=== PATIENT | male | born 1930 | race African-American/Black ===

== ENCOUNTER 2018-01-04 11:46 | Inpatient (IN) ==
[2018-01-04] MEDS ORDERED: SODIUM CHLORIDE 0.9% 1,000 ML IV STA ×2 (12:19→14:49)
[2018-01-04 12:28] LABS: Basophils % 0.1 % (0.0-0.8); Eosinophils % 0.1 % (0.00-10.9); Hematocrit 51.5 VOL% (42.0-52.0); Hemoglobin 16.7 GM/DL (14.0-18.0); Immature Granulocytes % 1.3 %; Immature Granulocytes Absolute 0.18 #; Lymphocytes # 0.7 10*3/uL (1.4-4.0); Lymphocytes % 5.1 % (21.2-54.2); Mean Corpuscular HGB Conc 32.4 GM/DL (32-36); Mean Corpuscular Hemoglobin 30 PG (27-34); Mean Corpuscular Volume 92.5 FL (87-102); Mean Platelet Volume 10.9 FL (9.6-12.0); Monocytes % 7.5 % (1.7-12.7); Neutrophils # 11.5 10*3/uL (1.4-7.4); Neutrophils % 85.9 % (38.7-73.9); Platelet Count 178 T/CUMM (130-400); Red Blood Count 5.57 MC/CUMM (3.8-5.5); Red Cell Distribution Width 17.2 % (9.3-17.3); White Blood Count 13.4 T/CUMM (4-12)
[2018-01-04 12:48] LABS: Lactic Acid 10.8 MMOL/L (0.4-2.0)
[2018-01-04 12:50] LABS: INR 1.1; Partial Thromboplastin Time 23.7 SECS (0-40)
[2018-01-04 12:54] LABS: Ammonia 114 UMOL/L (11-32)
[2018-01-04 14:19] LABS: Alanine Aminotransferase 45 U/L (16-61); Albumin 3.5 G/DL (3.4-5.0); Alkaline Phosphatase 77 U/L (45-117); Aspartate Amino Transferase 87 U/L (0-37); Blood Urea Nitrogen 129 MG/DL (7-18); Glucose 114 MG/DL (74-106); Osmolality,Calculated 315.8 MOS/KG (273-304); Potassium 5.8 MMOL/L (3.5-5.1); Sodium 137 MMOL/L (136-145); Total Protein 7.5 G/DL (6.4-8.3); Troponin I Only 0.066 NG/ML (0.00-0.045)
[2018-01-04] MEDS ORDERED: cefTRIAXone 1,000 MG VIAL IM STA (14:47)
[2018-01-04] MEDS ORDERED: cefTRIAXone 1,000 MG VIAL ONE (15:30)
[2018-01-04] MEDS ORDERED: cefTRIAXone 1,000 MG in SODIUM CHLORIDE 0.9% 100 ML IV STA (15:36)
[2018-01-04 15:56] LABS: Eosinophils % 0.1 % (0.00-10.9); Hematocrit 47.7 VOL% (42.0-52.0); Hemoglobin 15.5 GM/DL (14.0-18.0); Immature Granulocytes % 2.2 %; Immature Granulocytes Absolute 0.25 #; Lymphocytes # 0.6 10*3/uL (1.4-4.0); Lymphocytes % 5.1 % (21.2-54.2); Mean Corpuscular HGB Conc 32.5 GM/DL (32-36); Mean Corpuscular Hemoglobin 30 PG (27-34); Mean Corpuscular Volume 92.6 FL (87-102); Monocytes # 0.9 10*3/uL (0.11-0.8); Monocytes % 8.1 % (1.7-12.7); Neutrophils # 9.5 10*3/uL (1.4-7.4); Neutrophils % 84.5 % (38.7-73.9); Platelet Count 153 T/CUMM (130-400); Red Blood Count 5.15 MC/CUMM (3.8-5.5); Red Cell Distribution Width 17.1 % (9.3-17.3); White Blood Count 11.3 T/CUMM (4-12)
[2018-01-04] MEDS ORDERED: ONDANSETRON 4 MG/2 ML VIAL IV PRN (16:15)
[2018-01-04] MEDS: SODIUM CHLORIDE 0.9% 1,000 ML IV SCH (18:05)
[2018-01-04 19:27] LABS: Hematocrit 47.5 VOL% (42.0-52.0)
[2018-01-04] MEDS ORDERED: SODIUM CHLORIDE 0.9% 500 ML IV ONE (20:55)
[2018-01-04 21:09] LABS: Calcium 9.3 MG/DL (8.5-10.1); Osmolality,Calculated 315.7 MOS/KG (273-304); Potassium 5.5 MMOL/L (3.5-5.1)
[2018-01-04] MEDS: PANTOPRAZOLE 40 MG VIAL IV SCH (22:21)
[2018-01-04 23:53] LABS: Hematocrit 46.7 VOL% (42.0-52.0); Hemoglobin 15.8 GM/DL (14.0-18.0)
[2018-01-05] MEDS: SODIUM CHLORIDE 0.9% 1,000 ML IV SCH ×2 (01:38→08:19)
[2018-01-05 06:40] LABS: Hematocrit 43.5 VOL% (42.0-52.0); Hemoglobin 15.3 GM/DL (14.0-18.0)
[2018-01-05 07:10] LABS: Calcium 9.2 MG/DL (8.5-10.1); Osmolality,Calculated 320.3 MOS/KG (273-304); Potassium 4.9 MMOL/L (3.5-5.1)
[2018-01-05] MEDS: PANTOPRAZOLE 40 MG VIAL IV SCH ×2 (08:17→21:10)
[2018-01-05 10:50] LABS: Hematocrit 44.6 VOL% (42.0-52.0); Hemoglobin 15.4 GM/DL (14.0-18.0)
[2018-01-05] MEDS ORDERED: cefTRIAXone 1,000 MG in SYRINGE 1 EACH IV STA (13:45)
[2018-01-05 13:56] LABS: Basophils % 0.2 % (0.0-0.8); Hematocrit 43.8 VOL% (42.0-52.0); Hemoglobin 15.1 GM/DL (14.0-18.0); Immature Granulocytes % 0.5 %; Immature Granulocytes Absolute 0.04 #; Lymphocytes # 0.8 10*3/uL (1.4-4.0); Lymphocytes % 8.8 % (21.2-54.2); Mean Corpuscular HGB Conc 34.5 GM/DL (32-36); Mean Corpuscular Hemoglobin 30 PG (27-34); Mean Corpuscular Volume 87.3 FL (87-102); Mean Platelet Volume 10.9 FL (9.6-12.0); Monocytes # 1.1 10*3/uL (0.11-0.8); Monocytes % 12.5 % (1.7-12.7); Neutrophils # 6.8 10*3/uL (1.4-7.4); Platelet Count 143 T/CUMM (130-400); Red Blood Count 5.02 MC/CUMM (3.8-5.5); Red Cell Distribution Width 16.7 % (9.3-17.3); White Blood Count 8.7 T/CUMM (4-12)
[2018-01-05 14:18] LABS: Lactic Acid 2.3 MMOL/L (0.4-2.0)
[2018-01-05 14:37] LABS: Band Neutrophils 5 % (0-10); Lymphocytes 7 % (20-55); Ovalocytes Slight; Segmented Neutrophils 74 % (50-85); Total Cells Counted 100
[2018-01-05 14:38] LABS: Platelet Estimate Adequate; Polychromasia Slight; Target Cells Slight
[2018-01-05] MEDS ORDERED: TUBERCULIN SKIN TEST 0.1 ML SYRINGE INTRADERM ONE (16:14)
[2018-01-05 16:26] LABS: Hematocrit 43.5 VOL% (42.0-52.0); Hemoglobin 14.6 GM/DL (14.0-18.0)
[2018-01-05] MEDS: DEXTROSE 5% NACL 0.45% 1,000 ML IV SCH (17:08)
[2018-01-05] MEDS ORDERED: METOPROLOL TARTRATE 25 MG TABLET PO ONE (22:10)
[2018-01-05 22:25] LABS: Hematocrit 42.9 VOL% (42.0-52.0); Hemoglobin 14.7 GM/DL (14.0-18.0)
[2018-01-06] MEDS ORDERED: METOPROLOL TARTRATE 25 MG TABLET PO ONE (03:24)
[2018-01-06] MEDS: DEXTROSE 5% NACL 0.45% 1,000 ML IV SCH ×2 (03:47→14:17)
[2018-01-06 06:50] LABS: Basophils % 0.3 % (0.0-0.8); Eosinophils % 0.1 % (0.00-10.9); Hematocrit 41.6 VOL% (42.0-52.0); Hemoglobin 14.3 GM/DL (14.0-18.0); Immature Granulocytes % 0.5 %; Immature Granulocytes Absolute 0.04 #; Lymphocytes # 0.7 10*3/uL (1.4-4.0); Lymphocytes % 8.6 % (21.2-54.2); Mean Corpuscular HGB Conc 34.4 GM/DL (32-36); Mean Corpuscular Hemoglobin 30 PG (27-34); Mean Corpuscular Volume 87.4 FL (87-102); Mean Platelet Volume 11.8 FL (9.6-12.0); Monocytes # 0.9 10*3/uL (0.11-0.8); Monocytes % 11.8 % (1.7-12.7); Neutrophils # 6.2 10*3/uL (1.4-7.4); Neutrophils % 78.7 % (38.7-73.9); Platelet Count 142 T/CUMM (130-400); Red Blood Count 4.76 MC/CUMM (3.8-5.5); Red Cell Distribution Width 16.8 % (9.3-17.3); White Blood Count 7.9 T/CUMM (4-12)
[2018-01-06 07:09] LABS: Calcium 8.5 MG/DL (8.5-10.1); Osmolality,Calculated 321.8 MOS/KG (273-304); Potassium 3.6 MMOL/L (3.5-5.1)
[2018-01-06 07:19] LABS: Band Neutrophils 6 % (0-10); Lymphocytes 14 % (20-55); Segmented Neutrophils 67 % (50-85); Total Cells Counted 100
[2018-01-06 07:20] LABS: Burr Cells Slight; Hypochromasia 1+; Ovalocytes Slight; Platelet Estimate Normal
[2018-01-06] MEDS: PANTOPRAZOLE 40 MG VIAL IV SCH ×2 (08:24→21:06)
[2018-01-06] MEDS ORDERED: METOPROLOL SUCCINATE XL 25 MG TABLET PO SCH (09:00)
[2018-01-06 10:59] LABS: Hematocrit 44.2 VOL% (42.0-52.0); Hemoglobin 15.1 GM/DL (14.0-18.0)
[2018-01-06] MEDS: cefTRIAXone 1,000 MG in SYRINGE 1 EACH IV SCH (14:16)
[2018-01-07] MEDS: DEXTROSE 5% NACL 0.45% 1,000 ML IV SCH ×4 (01:30→20:03)
[2018-01-07 05:15] LABS: Basophils % 0.5 % (0.0-0.8); Eosinophils # 0.1 10*3/uL (0.0-0.87); Eosinophils % 1.6 % (0.00-10.9); Hematocrit 43.5 VOL% (42.0-52.0); Hemoglobin 15.1 GM/DL (14.0-18.0); Immature Granulocytes % 0.4 %; Immature Granulocytes Absolute 0.03 #; Lymphocytes # 0.7 10*3/uL (1.4-4.0); Lymphocytes % 8.8 % (21.2-54.2); Mean Corpuscular HGB Conc 34.7 GM/DL (32-36); Mean Corpuscular Hemoglobin 30 PG (27-34); Mean Corpuscular Volume 87.2 FL (87-102); Mean Platelet Volume 11.4 FL (9.6-12.0); Monocytes # 0.7 10*3/uL (0.11-0.8); Neutrophils # 6.6 10*3/uL (1.4-7.4); Neutrophils % 79.7 % (38.7-73.9); Platelet Count 147 T/CUMM (130-400); Red Blood Count 4.99 MC/CUMM (3.8-5.5); Red Cell Distribution Width 16.9 % (9.3-17.3); White Blood Count 8.2 T/CUMM (4-12)
[2018-01-07 05:43] LABS: Calcium 9.3 MG/DL (8.5-10.1); Osmolality,Calculated 316.6 MOS/KG (273-304); Potassium 3.8 MMOL/L (3.5-5.1)
[2018-01-07 06:00] LABS: Band Neutrophils 2 % (0-10); Eosinophils 1 % (0-10); Lymphocytes 15 % (20-55); Segmented Neutrophils 78 % (50-85); Total Cells Counted 100
[2018-01-07 06:01] LABS: Hypochromasia 1+; Microcytosis 1+; Ovalocytes Slight
[2018-01-07 06:02] LABS: Platelet Estimate Adequate; Target Cells Slight
[2018-01-07] MEDS: PANTOPRAZOLE 40 MG VIAL IV SCH ×2 (09:38→20:03)
[2018-01-07] MEDS ORDERED: ETOMIDATE 20 MG/10 ML VIAL IV ONE (12:13)
[2018-01-07] MEDS ORDERED: LIDOCAINE 2% 5 ML VIAL ONE (12:13)
[2018-01-07] MEDS ORDERED: PROPOFOL 200 MG/20 ML VIAL IV ONE (12:13)
[2018-01-07] MEDS: cefTRIAXone 1,000 MG in SYRINGE 1 EACH IV SCH (14:26)
[2018-01-08 07:23] LABS: Basophils % 0.3 % (0.0-0.8); Eosinophils # 0.1 10*3/uL (0.0-0.87); Eosinophils % 2.2 % (0.00-10.9); Hematocrit 43.9 VOL% (42.0-52.0); Hemoglobin 14.8 GM/DL (14.0-18.0); Immature Granulocytes % 0.5 %; Immature Granulocytes Absolute 0.03 #; Lymphocytes # 0.8 10*3/uL (1.4-4.0); Lymphocytes % 12.6 % (21.2-54.2); Mean Corpuscular HGB Conc 33.7 GM/DL (32-36); Mean Corpuscular Hemoglobin 30 PG (27-34); Mean Corpuscular Volume 89.2 FL (87-102); Mean Platelet Volume 11.2 FL (9.6-12.0); Monocytes % 15.6 % (1.7-12.7); Neutrophils # 4.4 10*3/uL (1.4-7.4); Neutrophils % 68.8 % (38.7-73.9); Platelet Count 149 T/CUMM (130-400); Red Blood Count 4.92 MC/CUMM (3.8-5.5); Red Cell Distribution Width 16.9 % (9.3-17.3); White Blood Count 6.4 T/CUMM (4-12)
[2018-01-08 07:38] LABS: Eosinophils 1 % (0-10); Giant Platelets Few; Hypochromasia 1+; Lymphocytes 18 % (20-55); Ovalocytes Slight; Platelet Estimate Normal; Segmented Neutrophils 75 % (50-85); Total Cells Counted 100
[2018-01-08 07:39] LABS: Microcytosis 1+
[2018-01-08 07:49] LABS: Calcium 8.8 MG/DL (8.5-10.1); Osmolality,Calculated 298.8 MOS/KG (273-304)
[2018-01-08] MEDS ORDERED: MAGNESIUM SULF RIDER 2 GM in PREMIX 1 EACH IV PRN (08:11)
[2018-01-08] MEDS: PANTOPRAZOLE 40 MG VIAL IV SCH (09:17)
[2018-01-08] MEDS: POTASSIUM CHLORIDE 20 MEQ TABLET PO PRN ×4 (09:17→15:14)
[2018-01-08] MEDS ORDERED: BISACODYL 5 MG TABLET PO ONE (09:26)
[2018-01-08] MEDS: DEXTROSE 5% NACL 0.45% 1,000 ML IV SCH (15:16)
[2018-01-08] MEDS: cefTRIAXone 1,000 MG in SYRINGE 1 EACH IV SCH (15:16)
[2018-01-08 16:29] LABS: Lactic Acid 2.5 MMOL/L (0.4-2.0)
[2018-01-08] MEDS ORDERED: MIRTAZAPINE 30 MG TABLET PO SCH (21:00)
[2018-01-09] MEDS: PANTOPRAZOLE 40 MG VIAL IV SCH ×2 (01:54→08:28)
[2018-01-09] MEDS: POTASSIUM CHLORIDE 20 MEQ TABLET PO PRN (08:29)
[2018-01-09] MEDS ORDERED: SIMVASTATIN 10 MG TABLET PO SCH (09:00)
[2018-01-09] MEDS ORDERED: CITALOPRAM 20 MG TABLET PO SCH (09:00)
[2018-01-09 12:34] VITALS: BP 106/56
== END 2018-01-09 14:06 | DRG 377 ==
LOC: EDUNIT# → EDBD → N.ED 11:46 → N.EDINP 16:15 → SUATTDRO 16:15 → N.5E 17:15
PROVIDERS: ADMIT Internal Medicine; ATTEND Internal Medicine

== ENCOUNTER 2018-02-09 08:58 | Inpatient (IN) ==
[2018-02-09] MEDS ORDERED: methylPREDNISolone SOD SUC 125 MG/2 ML VIAL IV STA (09:06)
[2018-02-09] MEDS ORDERED: LEVOFLOXACIN INJ 750 MG in PREMIX 1 EACH IV STA (09:06)
[2018-02-09] MEDS ORDERED: SODIUM CHLORIDE 0.9% 1,000 ML IV STA (09:06)
[2018-02-09] MEDS ORDERED: ALBUTEROL NEB SOLN 5 MG/ML 20 ML/BOTTLE RESP TX SCH (09:30)
[2018-02-09 10:11] LABS: Basophils % 0.1 % (0.0-0.8); Eosinophils % 0.5 % (0.00-10.9); Hematocrit 40.5 VOL% (42.0-52.0); Hemoglobin 13.8 GM/DL (14.0-18.0); Immature Granulocytes % 0.5 %; Immature Granulocytes Absolute 0.04 #; Lymphocytes # 0.9 10*3/uL (1.4-4.0); Lymphocytes % 10.3 % (21.2-54.2); Mean Corpuscular HGB Conc 34.1 GM/DL (32-36); Mean Corpuscular Hemoglobin 32 PG (27-34); Mean Corpuscular Volume 93.1 FL (87-102); Mean Platelet Volume 10.7 FL (9.6-12.0); Monocytes # 0.8 10*3/uL (0.11-0.8); Monocytes % 8.8 % (1.7-12.7); NRBC # 0.17 10*3/uL; Neutrophils # 6.9 10*3/uL (1.4-7.4); Neutrophils % 79.8 % (38.7-73.9); Platelet Count 114 T/CUMM (130-400); Red Blood Count 4.35 MC/CUMM (3.8-5.5); Red Cell Distribution Width 21.7 % (9.3-17.3); White Blood Count 8.6 T/CUMM (4-12)
[2018-02-09 10:27] LABS: Albumin 2.8 G/DL (3.4-5.0); Bilirubin,Total 2.3 MG/DL (0.2-1.0); Calcium 9.3 MG/DL (8.5-10.1); Osmolality,Calculated 322.1 MOS/KG (273-304); Potassium 4.4 MMOL/L (3.5-5.1); Total Protein 6.6 G/DL (6.4-8.3)
[2018-02-09 10:28] LABS: Lactic Acid 3.1 MMOL/L (0.4-2.0); Troponin I Only 0.143 NG/ML (0.00-0.045)
[2018-02-09 10:37] LABS: INR 1.4; PT Patient Result 14.2 SECS; Partial Thromboplastin Time 29.1 SECS (0-40)
[2018-02-09 11:41] LABS: Apearance,Urine CLEAR (Clear); Bacteria,Urine Few /HPF (Few); Bilirubin,Urine Negative (Negative); Blood, Urine Moderate mg/dL (Negative); Glucose,Urine (UA) Negative (Negative); Hyaline Casts,Urine 6 /LPF (0-3); Ketones,Urine Negative (Negative); Mucus,Urine Occasional /LPF (Occasional); Nitrite,Urine Negative (Negative); Protein,Urine Negative; RBC,Urine 6 /HPF (0-4); Urine Color Amber (Yellow); Urine Specific Gravity 1.014 (1.001-1.035); WBC,Urine 3 /HPF (0-6)
[2018-02-09] MEDS ORDERED: POLYETHYLENE GLYCOL POWDER 17 GM PACK PO PRN (12:09)
[2018-02-09 14:30] LABS: Lactic Acid 4.1 MMOL/L (0.4-2.0)
[2018-02-09] MEDS: SODIUM BICARB INJ 100 MEQ in DEXTROSE 5% 1,000 ML IV SCH (16:14)
[2018-02-09 19:34] LABS: Lactic Acid 3.7 MMOL/L (0.4-2.0)
[2018-02-09] MEDS: MIRTAZAPINE 30 MG TABLET PO SCH (21:13)
[2018-02-10] MEDS: SODIUM BICARB INJ 100 MEQ in DEXTROSE 5% 1,000 ML IV SCH ×3 (01:48→19:14)
[2018-02-10 04:53] LABS: Basophils % 0.1 % (0.0-0.8); Hematocrit 36.9 VOL% (42.0-52.0); Hemoglobin 12.7 GM/DL (14.0-18.0); Immature Granulocytes % 0.4 %; Immature Granulocytes Absolute 0.03 #; Lymphocytes # 0.3 10*3/uL (1.4-4.0); Lymphocytes % 3.8 % (21.2-54.2); Mean Corpuscular HGB Conc 34.4 GM/DL (32-36); Mean Corpuscular Hemoglobin 32 PG (27-34); Mean Corpuscular Volume 91.6 FL (87-102); Mean Platelet Volume 11.5 FL (9.6-12.0); Monocytes # 0.3 10*3/uL (0.11-0.8); NRBC # 0.12 10*3/uL; Neutrophils # 7.6 10*3/uL (1.4-7.4); Neutrophils % 92.7 % (38.7-73.9); Platelet Count 109 T/CUMM (130-400); Red Blood Count 4.03 MC/CUMM (3.8-5.5); Red Cell Distribution Width 21.5 % (9.3-17.3); White Blood Count 8.2 T/CUMM (4-12)
[2018-02-10 05:24] LABS: Calcium 9.2 MG/DL (8.5-10.1); Potassium 4.3 MMOL/L (3.5-5.1)
[2018-02-10 05:39] LABS: INR 1.4; PT Patient Result 14.7 SECS; Partial Thromboplastin Time 33.6 SECS (0-40)
[2018-02-10 06:29] LABS: Hypochromasia 1+; Lymphocytes 4 % (20-55); Segmented Neutrophils 92 % (50-85); Total Cells Counted 100
[2018-02-10 06:30] LABS: Platelet Estimate Decreased
[2018-02-10] MEDS: SIMVASTATIN 10 MG TABLET PO SCH (10:28)
[2018-02-10] MEDS: CITALOPRAM 20 MG TABLET PO SCH (10:28)
[2018-02-10] MEDS: MIRTAZAPINE 30 MG TABLET PO SCH (21:33)
[2018-02-11 07:53] LABS: Basophils % 0.1 % (0.0-0.8); Hemoglobin 13.6 GM/DL (14.0-18.0); Immature Granulocytes % 0.6 %; Immature Granulocytes Absolute 0.06 #; Lymphocytes # 0.8 10*3/uL (1.4-4.0); Lymphocytes % 8.2 % (21.2-54.2); Mean Corpuscular HGB Conc 34.9 GM/DL (32-36); Mean Corpuscular Hemoglobin 33 PG (27-34); Mean Corpuscular Volume 93.1 FL (87-102); Mean Platelet Volume 11.7 FL (9.6-12.0); Monocytes # 0.8 10*3/uL (0.11-0.8); Monocytes % 7.6 % (1.7-12.7); NRBC # 0.27 10*3/uL; Neutrophils # 8.5 10*3/uL (1.4-7.4); Neutrophils % 83.5 % (38.7-73.9); Platelet Count 83 T/CUMM (130-400); Red Blood Count 4.19 MC/CUMM (3.8-5.5); Red Cell Distribution Width 22.3 % (9.3-17.3); White Blood Count 10.1 T/CUMM (4-12)
[2018-02-11 08:13] LABS: Lactic Acid 4.9 MMOL/L (0.4-2.0)
[2018-02-11 08:17] LABS: Calcium 9.6 MG/DL (8.5-10.1); Osmolality,Calculated 311.4 MOS/KG (273-304); Potassium 3.9 MMOL/L (3.5-5.1)
[2018-02-11 08:52] LABS: Elliptocytes Few; Giant Platelets Few; Hypochromasia Slight; Platelet Estimate Decreased; Target Cells Few
[2018-02-11] MEDS: CITALOPRAM 20 MG TABLET PO SCH (09:31)
[2018-02-11] MEDS: LEVOFLOXACIN INJ 250 MG in PREMIX 1 EACH IV SCH (09:32)
[2018-02-11] MEDS: SIMVASTATIN 10 MG TABLET PO SCH (09:32)
[2018-02-11] MEDS: SODIUM CHLORIDE 0.9% 1,000 ML IV SCH (09:32)
[2018-02-11] MEDS: SODIUM BICARB INJ 100 MEQ in DEXTROSE 5% 1,000 ML IV SCH (09:42)
[2018-02-11] MEDS: MIRTAZAPINE 30 MG TABLET PO SCH (20:40)
[2018-02-12] MEDS: SODIUM CHLORIDE 0.9% 1,000 ML IV SCH ×2 (00:30→08:07)
[2018-02-12 07:00] LABS: Basophils % 0.1 % (0.0-0.8); Hematocrit 41.5 VOL% (42.0-52.0); Hemoglobin 13.8 GM/DL (14.0-18.0); Immature Granulocytes % 0.5 %; Immature Granulocytes Absolute 0.04 #; Lymphocytes # 0.5 10*3/uL (1.4-4.0); Lymphocytes % 6.6 % (21.2-54.2); Mean Corpuscular HGB Conc 33.3 GM/DL (32-36); Mean Corpuscular Hemoglobin 32 PG (27-34); Mean Corpuscular Volume 96.3 FL (87-102); Mean Platelet Volume 11.7 FL (9.6-12.0); Monocytes # 0.4 10*3/uL (0.11-0.8); Monocytes % 5.5 % (1.7-12.7); NRBC # 0.13 10*3/uL; Neutrophils % 87.3 % (38.7-73.9); Platelet Count 65 T/CUMM (130-400); Red Blood Count 4.31 MC/CUMM (3.8-5.5); Red Cell Distribution Width 22.5 % (9.3-17.3); White Blood Count 8.1 T/CUMM (4-12)
[2018-02-12 07:06] LABS: Calcium 9.1 MG/DL (8.5-10.1); Potassium 3.8 MMOL/L (3.5-5.1)
[2018-02-12 07:13] LABS: Band Neutrophils 1 % (0-10); Hypochromasia 1+; Lymphocytes 11 % (20-55); Nucleated Red Blood Cells 1 (0-5); Ovalocytes Slight; Platelet Estimate Decreased; Segmented Neutrophils 87 % (50-85); Total Cells Counted 100
[2018-02-12] MEDS: CITALOPRAM 20 MG TABLET PO SCH (09:09)
[2018-02-12] MEDS: SIMVASTATIN 10 MG TABLET PO SCH (09:09)
[2018-02-12] MEDS: MULTIVITAMIN IV SCH ×2 (13:03→23:39)
[2018-02-12] MEDS: DEXTROSE IV SCH ×2 (13:03→23:39)
[2018-02-12] MEDS: SODIUM BICARB IV SCH ×2 (13:03→23:39)
[2018-02-12] MEDS: THIAMINE 200 MG/2 ML VIAL IV SCH (13:03)
[2018-02-12] MEDS: MIRTAZAPINE 30 MG TABLET PO SCH (21:26)
[2018-02-13] MEDS: THIAMINE 200 MG/2 ML VIAL IV SCH (09:35)
[2018-02-13] MEDS: LEVOFLOXACIN INJ 250 MG in PREMIX 1 EACH IV SCH (09:36)
[2018-02-13] MEDS: SIMVASTATIN 10 MG TABLET PO SCH (09:37)
[2018-02-13] MEDS: CITALOPRAM 20 MG TABLET PO SCH (09:37)
[2018-02-13] MEDS: DEXTROSE IV SCH ×2 (18:27→23:37)
[2018-02-13] MEDS: MULTIVITAMIN IV SCH ×2 (18:27→23:37)
[2018-02-13] MEDS: SODIUM BICARB IV SCH ×2 (18:27→23:37)
[2018-02-13] MEDS: MIRTAZAPINE 30 MG TABLET PO SCH (22:26)
[2018-02-14] MEDS: SIMVASTATIN 10 MG TABLET PO SCH (08:11)
[2018-02-14] MEDS: CITALOPRAM 20 MG TABLET PO SCH (08:11)
[2018-02-14] MEDS: THIAMINE 200 MG/2 ML VIAL IV SCH (08:16)
[2018-02-14] MEDS: DEXTROSE IV SCH ×2 (09:56→20:42)
[2018-02-14] MEDS: SODIUM BICARB IV SCH ×2 (09:56→20:42)
[2018-02-14] MEDS: MULTIVITAMIN IV SCH ×2 (09:56→20:42)
[2018-02-14] MEDS: MIRTAZAPINE 30 MG TABLET PO SCH (20:59)
[2018-02-15 04:30] LABS: Eosinophils # 0.2 10*3/uL (0.0-0.87); Eosinophils % 2.3 % (0.00-10.9); Hematocrit 37.7 VOL% (42.0-52.0); Hemoglobin 13.4 GM/DL (14.0-18.0); Immature Granulocytes % 0.5 %; Immature Granulocytes Absolute 0.03 #; Lymphocytes # 0.9 10*3/uL (1.4-4.0); Lymphocytes % 13.1 % (21.2-54.2); Mean Corpuscular HGB Conc 35.5 GM/DL (32-36); Mean Corpuscular Hemoglobin 33 PG (27-34); Mean Corpuscular Volume 91.5 FL (87-102); Mean Platelet Volume 12.8 FL (9.6-12.0); Monocytes # 0.5 10*3/uL (0.11-0.8); Monocytes % 7.2 % (1.7-12.7); NRBC # 0.04 10*3/uL; Neutrophils % 76.9 % (38.7-73.9); Platelet Count 51 T/CUMM (130-400); Red Blood Count 4.12 MC/CUMM (3.8-5.5); White Blood Count 6.6 T/CUMM (4-12)
[2018-02-15 04:54] LABS: Calcium 8.6 MG/DL (8.5-10.1); Osmolality,Calculated 294.7 MOS/KG (273-304)
[2018-02-15 05:29] LABS: Hypochromasia 1+; Target Cells Few
[2018-02-15 05:30] LABS: Anisocytosis 1+; Macrocytosis 1+; Platelet Estimate Decreased
[2018-02-15] MEDS: SIMVASTATIN 10 MG TABLET PO SCH (08:49)
[2018-02-15] MEDS: THIAMINE 200 MG/2 ML VIAL IV SCH (09:29)
[2018-02-15] MEDS: SODIUM BICARB IV SCH (09:30)
[2018-02-15] MEDS: DEXTROSE IV SCH (09:30)
[2018-02-15] MEDS: MULTIVITAMIN IV SCH (09:30)
[2018-02-15] MEDS: DEXT 5% NACL 0.45% KCL 10 MEQ 10 MEQ/1,000 ML BAG IV SCH (12:37)
[2018-02-15] MEDS: FLUCONAZOLE INJ 200 MG in PREMIX 1 EACH IV SCH (18:31)
[2018-02-15] MEDS: MIRTAZAPINE 30 MG TABLET PO SCH (20:14)
[2018-02-16] MEDS: DEXT 5% NACL 0.45% KCL 10 MEQ 10 MEQ/1,000 ML BAG IV SCH (04:08)
[2018-02-16 04:13] LABS: Basophils % 0.2 % (0.0-0.8); Eosinophils # 0.1 10*3/uL (0.0-0.87); Eosinophils % 2.2 % (0.00-10.9); Hematocrit 41.6 VOL% (42.0-52.0); Hemoglobin 13.9 GM/DL (14.0-18.0); Immature Granulocytes % 0.5 %; Immature Granulocytes Absolute 0.03 #; Lymphocytes # 0.8 10*3/uL (1.4-4.0); Lymphocytes % 12.8 % (21.2-54.2); Mean Corpuscular HGB Conc 33.4 GM/DL (32-36); Mean Corpuscular Hemoglobin 32 PG (27-34); Mean Corpuscular Volume 95.6 FL (87-102); Mean Platelet Volume 12.3 FL (9.6-12.0); Monocytes # 0.7 10*3/uL (0.11-0.8); Monocytes % 11.4 % (1.7-12.7); NRBC # 0.06 10*3/uL; Neutrophils # 4.3 10*3/uL (1.4-7.4); Neutrophils % 72.9 % (38.7-73.9); Red Blood Count 4.35 MC/CUMM (3.8-5.5); Red Cell Distribution Width 20.4 % (9.3-17.3); White Blood Count 5.9 T/CUMM (4-12)
[2018-02-16 04:14] LABS: Platelet Count 53 T/CUMM (130-400)
[2018-02-16 04:34] LABS: Calcium 8.5 MG/DL (8.5-10.1)
[2018-02-16 04:35] LABS: Osmolality,Calculated 290.7 MOS/KG (273-304); Potassium 3.4 MMOL/L (3.5-5.1)
[2018-02-16 04:58] LABS: Hypochromasia Slight; Macrocytosis 1+; Platelet Estimate Decreased
[2018-02-16 05:11] LABS: Risk Ratio 5.56; VLDL CHOLESTEROL 24.6 MG/DL
[2018-02-16] MEDS: SIMVASTATIN 10 MG TABLET PO SCH (10:51)
[2018-02-16] MEDS: THIAMINE 200 MG/2 ML VIAL IV SCH (10:51)
[2018-02-16] MEDS: MIRTAZAPINE 30 MG TABLET PO SCH (21:05)
[2018-02-16] MEDS: FLUCONAZOLE INJ 200 MG in PREMIX 1 EACH IV SCH (21:55)
[2018-02-17] MEDS: METOPROLOL SUCCINATE XL 25 MG TABLET PO SCH ×2 (05:00→09:38)
[2018-02-17 07:51] LABS: Basophils % 0.2 % (0.0-0.8); Eosinophils # 0.1 10*3/uL (0.0-0.87); Eosinophils % 1.6 % (0.00-10.9); Hematocrit 39.5 VOL% (42.0-52.0); Hemoglobin 13.1 GM/DL (14.0-18.0); Immature Granulocytes % 0.5 %; Immature Granulocytes Absolute 0.03 #; Lymphocytes # 0.7 10*3/uL (1.4-4.0); Lymphocytes % 10.6 % (21.2-54.2); Mean Corpuscular HGB Conc 33.2 GM/DL (32-36); Mean Corpuscular Hemoglobin 32 PG (27-34); Mean Corpuscular Volume 96.1 FL (87-102); Mean Platelet Volume 12.4 FL (9.6-12.0); Monocytes # 0.7 10*3/uL (0.11-0.8); Monocytes % 11.1 % (1.7-12.7); NRBC # 0.06 10*3/uL; Neutrophils # 4.8 10*3/uL (1.4-7.4); Platelet Count 62 T/CUMM (130-400); Red Blood Count 4.11 MC/CUMM (3.8-5.5); Red Cell Distribution Width 20.3 % (9.3-17.3); White Blood Count 6.3 T/CUMM (4-12)
[2018-02-17 08:19] LABS: Calcium 8.8 MG/DL (8.5-10.1); Osmolality,Calculated 296.3 MOS/KG (273-304); Potassium 3.3 MMOL/L (3.5-5.1)
[2018-02-17 08:20] LABS: Burr Cells Slight; Hypochromasia 1+; Macrocytosis Slight; Ovalocytes Slight; Platelet Estimate Decreased
[2018-02-17] MEDS: SIMVASTATIN 10 MG TABLET PO SCH (09:36)
[2018-02-17] MEDS: THIAMINE 200 MG/2 ML VIAL IV SCH (09:37)
[2018-02-17] MEDS: FLUCONAZOLE 200 MG TABLET PO SCH (09:41)
[2018-02-17] MEDS: MIRTAZAPINE 30 MG TABLET PO SCH (20:26)
[2018-02-17] MEDS: PANTOPRAZOLE 40 MG TABLET PO SCH (20:26)
[2018-02-18] MEDS: POTASSIUM CHLORIDE 20 MEQ TABLET PO PRN ×3 (00:11→04:11)
[2018-02-18] MEDS: DEXT 5% NACL 0.45% KCL 10 MEQ 10 MEQ/1,000 ML BAG IV SCH ×3 (00:35→19:33)
[2018-02-18 08:06] LABS: Basophils % 0.2 % (0.0-0.8); Eosinophils # 0.1 10*3/uL (0.0-0.87); Eosinophils % 1.3 % (0.00-10.9); Hemoglobin 13.3 GM/DL (14.0-18.0); Immature Granulocytes % 0.8 %; Immature Granulocytes Absolute 0.05 #; Lymphocytes # 0.8 10*3/uL (1.4-4.0); Lymphocytes % 13.4 % (21.2-54.2); Mean Corpuscular HGB Conc 33.3 GM/DL (32-36); Mean Corpuscular Hemoglobin 32 PG (27-34); Mean Corpuscular Volume 96.4 FL (87-102); Mean Platelet Volume 11.5 FL (9.6-12.0); Monocytes # 0.7 10*3/uL (0.11-0.8); Monocytes % 11.7 % (1.7-12.7); NRBC # 0.04 10*3/uL; Neutrophils # 4.5 10*3/uL (1.4-7.4); Neutrophils % 72.6 % (38.7-73.9); Platelet Count 71 T/CUMM (130-400); Red Blood Count 4.15 MC/CUMM (3.8-5.5); Red Cell Distribution Width 20.4 % (9.3-17.3); White Blood Count 6.1 T/CUMM (4-12)
[2018-02-18 08:31] LABS: Hypochromasia 1+; Lymphocytes 4 % (20-55); Macrocytosis 2+; Platelet Estimate Decreased; Polychromasia Slight; Segmented Neutrophils 84 % (50-85); Total Cells Counted 100
[2018-02-18 08:36] LABS: Calcium 8.8 MG/DL (8.5-10.1); Osmolality,Calculated 297.3 MOS/KG (273-304); Potassium 3.3 MMOL/L (3.5-5.1)
[2018-02-18] MEDS: THIAMINE 200 MG/2 ML VIAL IV SCH (10:14)
[2018-02-18] MEDS: FLUCONAZOLE 200 MG TABLET PO SCH (10:15)
[2018-02-18] MEDS: SIMVASTATIN 10 MG TABLET PO SCH (10:15)
[2018-02-18] MEDS: METOPROLOL SUCCINATE XL 25 MG TABLET PO SCH (10:15)
[2018-02-18] MEDS: PANTOPRAZOLE 40 MG TABLET PO SCH ×2 (10:15→20:54)
[2018-02-18] MEDS: MIRTAZAPINE 30 MG TABLET PO SCH (20:54)
[2018-02-19] MEDS ORDERED: GLUCAGON 1 MG VIAL IM PRN (08:53)
[2018-02-19] MEDS: FLUCONAZOLE 200 MG TABLET PO SCH (09:32)
[2018-02-19] MEDS: SIMVASTATIN 10 MG TABLET PO SCH (09:33)
[2018-02-19] MEDS: THIAMINE 200 MG/2 ML VIAL IV SCH (09:33)
[2018-02-19] MEDS: PANTOPRAZOLE 40 MG TABLET PO SCH ×2 (09:33→21:51)
[2018-02-19] MEDS: METOPROLOL SUCCINATE XL 25 MG TABLET PO SCH (09:33)
[2018-02-19 13:43] LABS: Calcium 8.3 MG/DL (8.5-10.1); Osmolality,Calculated 293.8 MOS/KG (273-304); Potassium 4.9 MMOL/L (3.5-5.1)
[2018-02-19] MEDS ORDERED: SODIUM CHLORIDE 0.9% 250 ML IV ONE (14:00)
[2018-02-19 14:06] LABS: Basophils % 0.2 % (0.0-0.8); Eosinophils % 0.1 % (0.00-10.9); Hematocrit 41.4 VOL% (42.0-52.0); Hemoglobin 13.7 GM/DL (14.0-18.0); Immature Granulocytes % 1.1 %; Immature Granulocytes Absolute 0.12 #; Lymphocytes # 1.4 10*3/uL (1.4-4.0); Lymphocytes % 13.3 % (21.2-54.2); Mean Corpuscular HGB Conc 33.1 GM/DL (32-36); Mean Corpuscular Hemoglobin 33 PG (27-34); Mean Corpuscular Volume 100.2 FL (87-102); Mean Platelet Volume 11.8 FL (9.6-12.0); Monocytes # 1.3 10*3/uL (0.11-0.8); Monocytes % 12.4 % (1.7-12.7); NRBC # 0.05 10*3/uL; Neutrophils # 7.9 10*3/uL (1.4-7.4); Neutrophils % 72.9 % (38.7-73.9); Platelet Count 63 T/CUMM (130-400); Red Blood Count 4.13 MC/CUMM (3.8-5.5); Red Cell Distribution Width 21.6 % (9.3-17.3); White Blood Count 10.8 T/CUMM (4-12)
[2018-02-19] MEDS ORDERED: SODIUM CHLOR 0.9% KCL 20 MEQ 20 MEQ/1,000 ML BAG IV SCH (14:30)
[2018-02-19 15:22] LABS: ABG Base Excess -0.2 MMOL/L (-2.5-2.5); ABG HCO3 20.8 MMOL/L (20-26); ABG Oxygen Saturation 99.5 % (95-100); ABG PCO2 25.1 MM HG (35-48); ABG PH 7.537 (7.35-7.45); ABG PO2 202.1 MM HG (80-95); ABG TCO2 21.6 MMOL/L (23-27)
[2018-02-19] MEDS: INSULIN REGULAR 100 UNIT/ML SUBCUT SCH ×2 (15:53→19:09)
[2018-02-19] MEDS ORDERED: POTASSIUM CHLORIDE INJ 10 MEQ in SODIUM CHLORIDE 0.9% 1,000 ML IV SCH (17:30)
[2018-02-19] MEDS: PIPERACILLIN/TAZOBACTAM 3,375 MG in SODIUM CHLORIDE 0.9% 100 ML IV SCH (18:10)
[2018-02-19] MEDS: MIRTAZAPINE 30 MG TABLET PO SCH (21:51)
[2018-02-19] MEDS: SODIUM CHLORIDE 0.9% 1,000 ML IV SCH (21:52)
[2018-02-19] MEDS: POTASSIUM CHLORIDE 10 MEQ TABLET PO SCH (21:52)
[2018-02-20] MEDS ORDERED: SODIUM CHLOR 0.9% KCL 20 MEQ 20 MEQ/1,000 ML BAG IV SCH (00:30)
[2018-02-20] MEDS: INSULIN REGULAR 100 UNIT/ML SUBCUT SCH ×4 (01:05→18:36)
[2018-02-20] MEDS: PIPERACILLIN/TAZOBACTAM 3,375 MG in SODIUM CHLORIDE 0.9% 100 ML IV SCH ×2 (05:27→22:23)
[2018-02-20] MEDS: DEXTROSE 50% 25 GM/50 ML VIAL IV PRN ×2 (06:09→17:55)
[2018-02-20 06:42] LABS: Basophils % 0.4 % (0.0-0.8); Eosinophils # 0.1 10*3/uL (0.0-0.87); Eosinophils % 1.2 % (0.00-10.9); Hematocrit 36.6 VOL% (42.0-52.0); Hemoglobin 12.8 GM/DL (14.0-18.0); Immature Granulocytes % 0.7 %; Immature Granulocytes Absolute 0.06 #; Lymphocytes # 1.1 10*3/uL (1.4-4.0); Lymphocytes % 13.1 % (21.2-54.2); Mean Corpuscular Hemoglobin 33 PG (27-34); Mean Corpuscular Volume 94.6 FL (87-102); Mean Platelet Volume 12.9 FL (9.6-12.0); Monocytes # 0.5 10*3/uL (0.11-0.8); Monocytes % 6.5 % (1.7-12.7); NRBC # 0.12 10*3/uL; Neutrophils # 6.3 10*3/uL (1.4-7.4); Neutrophils % 78.1 % (38.7-73.9); Platelet Count 48 T/CUMM (130-400); Red Blood Count 3.87 MC/CUMM (3.8-5.5); Red Cell Distribution Width 20.7 % (9.3-17.3); White Blood Count 8.1 T/CUMM (4-12)
[2018-02-20 07:00] LABS: Calcium 8.6 MG/DL (8.5-10.1); Osmolality,Calculated 296.7 MOS/KG (273-304); Prealbumin 3.1 MG/DL (20-40)
[2018-02-20] MEDS: METOPROLOL SUCCINATE XL 25 MG TABLET PO SCH (08:35)
[2018-02-20] MEDS: THIAMINE 200 MG/2 ML VIAL IV SCH (10:52)
[2018-02-20] MEDS: POTASSIUM CHLORIDE 10 MEQ TABLET PO SCH (10:55)
[2018-02-20] MEDS: PANTOPRAZOLE 40 MG TABLET PO SCH ×2 (10:55→22:24)
[2018-02-20] MEDS: SIMVASTATIN 10 MG TABLET PO SCH (10:55)
[2018-02-20] MEDS: FLUCONAZOLE 200 MG TABLET PO SCH (10:55)
[2018-02-20] MEDS ORDERED: FUROSEMIDE 40 MG/4 ML VIAL IV ONE (18:09)
[2018-02-20] MEDS: SODIUM CHLORIDE 0.9% 1,000 ML IV SCH (18:45)
[2018-02-20] MEDS: MIRTAZAPINE 30 MG TABLET PO SCH (22:24)
[2018-02-21] MEDS: INSULIN REGULAR 100 UNIT/ML SUBCUT SCH ×4 (00:29→17:24)
[2018-02-21] MEDS: DEXTROSE 50% 25 GM/50 ML VIAL IV PRN (00:42)
[2018-02-21] MEDS: DEXTROSE 5% NACL 0.9% 1,000 ML IV SCH ×2 (02:47→15:52)
[2018-02-21] MEDS: PIPERACILLIN/TAZOBACTAM 3,375 MG in SODIUM CHLORIDE 0.9% 100 ML IV SCH ×2 (10:37→21:52)
[2018-02-21] MEDS: THIAMINE 200 MG/2 ML VIAL IV SCH (10:37)
[2018-02-21] MEDS: METOPROLOL SUCCINATE XL 25 MG TABLET PO SCH (10:38)
[2018-02-21] MEDS: SIMVASTATIN 10 MG TABLET PO SCH (10:38)
[2018-02-21] MEDS: FLUCONAZOLE 200 MG TABLET PO SCH (10:38)
[2018-02-21] MEDS: POTASSIUM CHLORIDE 10 MEQ TABLET PO SCH (10:38)
[2018-02-21] MEDS: PANTOPRAZOLE 40 MG TABLET PO SCH ×2 (10:38→21:53)
[2018-02-21] MEDS: MIRTAZAPINE 30 MG TABLET PO SCH (21:52)
[2018-02-22] MEDS: DEXTROSE 50% 25 GM/50 ML VIAL IV PRN ×2 (01:45→11:03)
[2018-02-22] MEDS: DEXTROSE 5% NACL 0.9% 1,000 ML IV SCH (03:42)
[2018-02-22] MEDS: INSULIN REGULAR 100 UNIT/ML SUBCUT SCH ×2 (05:35)
[2018-02-22] MEDS: PIPERACILLIN/TAZOBACTAM 3,375 MG in SODIUM CHLORIDE 0.9% 100 ML IV SCH (09:05)
[2018-02-22] MEDS: THIAMINE 200 MG/2 ML VIAL IV SCH (10:49)
[2018-02-22] MEDS: FLUCONAZOLE 200 MG TABLET PO SCH (10:50)
[2018-02-22] MEDS: PANTOPRAZOLE 40 MG TABLET PO SCH (10:50)
[2018-02-22] MEDS: METOPROLOL SUCCINATE XL 25 MG TABLET PO SCH (10:50)
[2018-02-22] MEDS: SIMVASTATIN 10 MG TABLET PO SCH (10:51)
[2018-02-22] MEDS: POTASSIUM CHLORIDE 10 MEQ TABLET PO SCH (10:51)
[2018-02-22 11:33] VITALS: BP 144/87
== END 2018-02-22 14:50 | DRG 682 ==
LOC: EDUNIT# → EDBD → N.ED 08:58 → SUATTDRO 11:33 → N.EDINP 11:33 → N.2E 13:34
PROVIDERS: ATTEND Internal Medicine